=== PATIENT | female | born 1965 | race Asian ===

== ENCOUNTER 2019-10-27 08:42 | Emergency (ER) | payer SELFPAY ==
[~2019-10-27] VITALS: Ht 160 cm; Wt 68.5 kg
[2019-10-27 08:45] VITALS: BP 166/85
--- NOTE | 2019-10-27 08:46 | NUR ---
SEEN AND EXAMINED BY .
--- NOTE | 2019-10-27 09:06 | NUR ---
PT IS WHEELED TO CT SCAN VIA [facility].
--- NOTE | 2019-10-27 10:39 | NUR ---
Patient discharged to home in stable condition. Written and verbal after care instructions given. Patient verbalizes understanding of instruction.
== END 2019-10-27 10:41 | disposition home or self-care (01) ==
LOC: ER 08:49
DX: S20.211A Contusion of right front wall of thorax, initial encounter (principal); R10.12 Left upper quadrant pain; R10.32 Left lower quadrant pain; I10 Essential (primary) hypertension; Z88.0 Allergy status to penicillin; V49.49XA Driver injured in collision with other motor vehicles in traffic accident, initial encounter; Y93.89 Activity, other specified; Y92.488 Other paved roadways as the place of occurrence of the external cause; Y99.8 Other external cause status
CPT/HCPCS: 71250-TC